=== PATIENT | female | born 1960 | race African-American/Black ===

== ENCOUNTER 2016-09-06 20:03 | Emergency (ER) | payer SELFPAY ==
[~2016-09-06] VITALS: Ht 175.3 cm; Wt 65.0 kg
[~2016-09-06 20:03] MED LIST: ZOFR4TAB3 SL
[2016-09-06 20:04] VITALS: BP 133/89; PULSE 128; RESP 16; TEMP 98.1; O2SAT 97
[2016-09-06] MEDS ORDERED: BUPIVACAINE HCL PF 0.5% 10 ML VIAL INFIL ONE (20:15)
[2016-09-06] MEDS ORDERED: LIDOCAINE HCL 1% 50 ML VIAL INFIL ONE (20:15)
[2016-09-06] MEDS ORDERED: ZANT150T2 PO (20:17)
--- NOTE | 2016-09-06 20:19 | PD ---
HPI Chief Complaint: Laceration/Skin Injury Time Seen by Provider: 20:15 Travel History International Travel<30 days: No Contact w/Intl Traveler<30days: No Traveled to known affect area: No History of Present Illness HPI 55-year-old female presents to the emergency department for evaluation of laceration to right hand third finger. Patient states about 4 hours ago she was using a grill when the grill lid fell down onto her distal right third finger. States that she is laceration to her finger that has not stopped slowly bleeding despite multiple dressings. She complains of minimal pain at the site of the laceration. Denies any decreased range of motion, decreased sensation, numbness or tingling. States that her tetanus vaccination is up-to- date. PFSH Past Medical History Medical History: Denies Significant Hx Past Surgical History Hysterectomy: Yes Social History Tobacco Use: Yes (1PPD) Substance Use: No Allergies-Medications (Allergen,Severity, Reaction): Coded Allergies: Ibuprofen (Verified Allergy, Severe, Nausea/Vomiting, 09/06/16) Reported Meds & Prescriptions Reported Meds & Active Scripts Active Reported Zantac (Ranitidine HCl) 150 Mg Tab 150 Mg PO BID Review of Systems Except as stated in HPI: all other systems reviewed are Neg Physical Exam Narrative GENERAL: Well-nourished and well-developed pleasant female patient in no acute distress. SKIN: Warm and dry. HEAD: Normocephalic and atraumatic. EYES: No injection, drainage, or hyphema noted. PERRLA. EOMI. ENT: No nasal drainage noted. Oropharynx is clear. NECK: Supple and the trachea is midline. CARDIOVASCULAR: Regular rate and rhythm. RESPIRATORY: Breath sounds are equal bilaterally with no accessory muscle use, wheezing, rhonchi, or crackles. EXTREMITY: Right hand third finger distal volar aspect with 1.5 cm laceration. Full range of motion in all joints. No joint swelling/injury. Normal opposition of thumb. Distal extremity neurovascularly intact with intact two point discrimination. NEUROLOGICAL: Awake, alert, and oriented. Normal speech and gait. Cranial nerves are grossly intact. Data Data Last Documented VS Vital Signs Date Time Temp Pulse Resp B/P Pulse Ox O2 Delivery O2 Flow Rate FiO2 09/06/16 20:04 98.1 128 16 133/89 97 Room Air Orders Bupivacaine Pf 0.5% Inj (Marcaine Pf 0.5 (09/06/16 20:15) Lidocaine 1% Inj (50 Ml) (Xylocaine 1% I (09/06/16 20:15) Finger ([id number]) (09/06/16 20:14) MDM Medical Decision Making Medical Screen Exam Complete: Yes Emergency Medical Condition: Yes Differential Diagnosis Laceration versus deep versus superficial versus avulsion Narrative Course 55-year-old female presents to the emergency department for evaluation of right hand third finger laceration. Patient is afebrile, she is tachycardic, otherwise vital signs within normal limits. Patient's finger is neurovascularly intact. Digital block and laceration repair is performed. Patient is refusing to have an x-ray performed at this time. I did discuss with her that she could have a distal tuft fracture however patient is refusing x-ray. She'll be placed on prophylactic antibiotics. Discussed with her that should she develop any worsening of symptoms such as redness, swelling, pain, discharge or drainage to return immediately to the emergency department. Patient verbalizes understanding and agreement with treatment plan. Procedures Procedure Narrative LACERATION LOCATION: Right hand third finger volar distal tip LENGTH: 1.5 cm NUMBER OF STITCHES/BRIGID: 4 sutures REPAIR: The area of the laceration was prepped with Betadine and sterilely draped. A digital block was performed using 1% lidocaine and 0.5% bupivacaine. The wound was copiously irrigated and explored without evidence of foreign body, tendon injury or neurovascular injury. The wound was closed using 4. 0 Ethilon. This was a single layer repair. Antibiotic ointment and a sterile dressing was applied. The patient was advised to keep the dressing clean and dry. Patient tolerated the procedure well. Diagnosis Primary Impression: Finger laceration Qualified Code: S61.212A - Laceration of right middle finger without foreign body without damage to nail, initial encounter Referrals: Primary Care Physician Patient Instructions: Finger Laceration (ED), General Instructions Additional Instructions: Keep wound clean and dry. Wash gently with soap and water. Apply topical antibiotic ointment twice daily. Have sutures removed in 7 days. Take medication as prescribed with food and a full glass of water. Follow-up with your Primary Care Physician. Return to the ED for any acute worsening of symptoms. Med/Other Pt SpecificInfo: Prescription(s) given Disposition: 01 DISCHARGE HOME Condition: Stable Ilene Polo Sep 06, 2016 20:19
[2016-09-06] MEDS ORDERED: CEPH-460 PO (21:07)
--- NOTE | 2016-09-06 21:07 | PD ---
Data Data Last Documented VS Vital Signs Date Time Temp Pulse Resp B/P Pulse Ox O2 Delivery O2 Flow Rate FiO2 09/06/16 20:04 98.1 128 16 133/89 97 Room Air Orders Bupivacaine Pf 0.5% Inj (Marcaine Pf 0.5 (09/06/16 20:15) Lidocaine 1% Inj (50 Ml) (Xylocaine 1% I (09/06/16 20:15) MDM Supervised Visit with MIKHAIL: No Diagnosis Primary Impression: Finger laceration Qualified Code: S61.212A - Laceration of right middle finger without foreign body without damage to nail, initial encounter Referrals: Primary Care Physician Patient Instructions: General Instructions, Finger Laceration (ED) Departure Forms: Tests/Procedures Additional Instruction: Keep wound clean and dry. Wash gently with soap and water. Apply topical antibiotic ointment twice daily. Have sutures removed in 7 days. Take medication as prescribed with food and a full glass of water. Follow-up with your Primary Care Physician. Return to the ED for any acute worsening of symptoms. Med/Other Pt SpecificInfo: Prescription(s) given Scripts Cephalexin (Keflex)500 Mg [id number] Mg PO Q12H 5 Days Ref 0 Prov:Zina Branham MD 09/06/16 Disposition: 01 DISCHARGE HOME Condition: Stable Zina Branham MD Sep 06, 2016 21:07
== END 2016-09-06 21:35 | disposition home or self-care (01) ==
LOC: NEPD 20:03
DX: S61.212A Laceration without foreign body of right middle finger without damage to nail, initial encounter (principal); Z72.0 Tobacco use; S67.21XA Crushing injury of right hand, initial encounter; Y93.G2 Activity, grilling and smoking food; Y92.9 Unspecified place or not applicable; Y99.9 Unspecified external cause status
CPT/HCPCS: 12001

== ENCOUNTER 2016-09-14 11:58 | Emergency (ER) | payer SELFPAY ==
[~2016-09-14 11:58] MED LIST changes: +CEPH-460 PO; +ZANT150T2 PO; -ZOFR4TAB3 SL
[2016-09-14 12:01] VITALS: BP 140/77; PULSE 104; RESP 20; TEMP 98.7; O2SAT 97
--- NOTE | 2016-09-14 13:05 | PD ---
HPI Chief Complaint: Injury Time Seen by Provider: 13:02 Travel History International Travel<30 days: No Contact w/Intl Traveler<30days: No Traveled to known affect area: No History of Present Illness HPI 56-year-old Afro-[place] female presents the emergency department status post injury to the right distal third middle finger on September 05. Patient had sutures placed at that time. Patient had no x-rays performed at that time at her request. She now presents with ongoing swelling and ecchymosis to the base of the nail of the third digit on the right hand. Sutures are in place in the the wound appears to be healed fairly well. There is no wound dehiscence. Patient complains of numbness along the distal finger, but denies drainage or fever or significant pain. Patient is allergic to ibuprofen. PFSH Past Surgical History Hysterectomy: Yes Social History Alcohol Use: Yes (6PPW) Tobacco Use: Yes (1PPD) Substance Use: No Allergies-Medications (Allergen,Severity, Reaction): Coded Allergies: Ibuprofen (Verified Allergy, Severe, Nausea/Vomiting, 09/14/16) Reported Meds & Prescriptions Reported Meds & Active Scripts Active No Active Prescriptions or Reported Medications Review of Systems Except as stated in HPI: all other systems reviewed are Neg General / Constitutional: No: Fever Eyes: No: Visual changes HENT: No: Headaches Cardiovascular: No: Chest Pain or Discomfort Respiratory: No: Shortness of Breath Gastrointestinal: No: Abdominal Pain Genitourinary: No: Dysuria Musculoskeletal: No: Pain Skin: No Rash Neurologic: No: Weakness Psychiatric: No: Depression Endocrine: No: Polydipsia Hematologic/Lymphatic: No: Easy Bruising Physical Exam Narrative GENERAL: Patient appears in no acute distress. SKIN: Warm and dry. Patient has normal colored normal turgor. The right distal third finger shows well healed laceration with sutures still in place. There is ecchymosis to the base of the fingernail, but no signs of infection or drainage currently. HEAD: Atraumatic. Normocephalic. EYES: Pupils equal and round. No scleral icterus. No injection or drainage. ENT: No nasal bleeding or discharge. Mucous membranes pink and moist. Pharynx is clear. Airway is patent. NECK: Trachea midline. Supple nontender CARDIOVASCULAR: Regular rate and rhythm. RESPIRATORY: No accessory muscle use. Clear to auscultation. Breath sounds equal bilaterally. GASTROINTESTINAL: Abdomen soft, non-tender, nondistended. Hepatic and splenic margins not palpable. MUSCULOSKELETAL: Extremities without clubbing, cyanosis, or edema. No obvious deformities. NEUROLOGICAL: Awake and alert. No obvious cranial nerve deficits. Motor grossly within normal limits. Five out of 5 muscle strength in the arms and legs. Normal speech. PSYCHIATRIC: Appropriate mood and affect; insight and judgment normal. Data Data Last Documented VS Vital Signs Date Time Temp Pulse Resp B/P Pulse Ox O2 Delivery O2 Flow Rate FiO2 09/14/16 12:01 98.7 104 20 140/77 97 Room Air Orders Finger ([id number]) (09/14/16 12:47) MDM Medical Decision Making Medical Screen Exam Complete: Yes Emergency Medical Condition: Yes Medical Record Reviewed: Yes Differential Diagnosis Crush injury to the distal right third finger. Laceration. Possible fracture. Suture removal. Narrative Course Patient is medically stable at time of exam. X-ray of the right third finger is ordered. X-ray shows a distal tuft fracture which is comminuted appears to be healing well with good alignment. Sutures are removed from the previous laceration which appears to be healing well without signs of dehiscence or infection. Band-Aid is placed as well as a aluminum cage finger splint for protection. Patient should continue to keep the area clean and splinted for the next 6-8 weeks. Patient can follow-up with Dr. Baeza, the hand surgeon as needed. Patient can return the emergency Department with worsening symptoms as necessary. Diagnosis Primary Impression: Fracture, finger, distal phalanx Qualified Code: S62.662D - Open nondisplaced fracture of distal phalanx of right middle finger with routine healing, subsequent encounter Additional Impression: Encounter for removal of sutures Referrals: Laurel Baeza MD as needed Patient Instructions: Finger Fracture (ED), Finger Laceration (ED), General Instructions Additional Instructions: X-ray shows a distal tuft fracture which is comminuted appears to be healing well with good alignment. Sutures are removed from the previous laceration which appears to be healing well without signs of dehiscence or infection. Band-Aid is placed as well as a aluminum cage finger splint for protection. Patient should continue to keep the area clean and splinted for the next 6-8 weeks. Patient can follow-up with Dr. Baeza, the hand surgeon as needed. Patient can return the emergency Department with worsening symptoms as necessary. Med/Other Pt SpecificInfo: Prescription(s) given, Wound Care Scripts No Active Prescriptions or Reported Meds Disposition: 01 DISCHARGE HOME Condition: Stable Devante Gross Sep 14, 2016 13:05
--- NOTE | 2016-09-14 13:37 | RADRPT ---
EXAM DATE/TIME: 09/14/2016 13:09 [facility] COMPARISON: No previous studies available for comparison. INDICATIONS : Dropped a grill on her 3rd digit right hand. MEDICAL HISTORY : None. SURGICAL HISTORY : None. ENCOUNTER: Initial ACUITY: 1 week PAIN SCORE: 10/10 LOCATION: Right 3rd digit FINDINGS: There is a fracture of the third distal phalanx without any significant angulation or displacement. CONCLUSION: Third distal phalangeal fracture. Susy Crow MD on September 14, 2016 at 13:35 Board Certified Radiologist. This report was verified electronically.
== END 2016-09-14 13:58 | disposition home or self-care (01) ==
LOC: NEPK 11:58
DX: S62.632D Displaced fracture of distal phalanx of right middle finger, subsequent encounter for fracture with routine healing (principal); F17.200 Nicotine dependence, unspecified, uncomplicated; Z48.02 Encounter for removal of sutures; X58.XXXD Exposure to other specified factors, subsequent encounter
CPT/HCPCS: 73140; 99283

== ENCOUNTER 2016-09-22 16:55 | Emergency (ER) | payer SELFPAY ==
[~2016-09-22] VITALS: Ht 175.3 cm; Wt 60.0 kg
[2016-09-22 16:57] VITALS: BP 155/88; PULSE 95; RESP 20; TEMP 98.5; O2SAT 97
--- NOTE | 2016-09-22 17:11 | PD ---
Physical Exam Time Seen by Provider: 17:09 Narrative 56 y/o female here for wound check- seen recently with a laceration to R 3rd finger, sutured, and now the wound is dehiscing. Vital signs reviewed. Seen at triage desk. Awaiting bed placement. Data Data Last Documented VS Vital Signs Date Time Temp Pulse Resp B/P Pulse Ox O2 Delivery O2 Flow Rate FiO2 09/22/16 16:57 98.5 95 20 155/[address] [facility] Medical Record Reviewed: Yes Supervised Visit with MIKHAIL: No Scripts No Active Prescriptions or Reported Meds Narendra Machado Sep 22, 2016 17:11
--- NOTE | 2016-09-22 17:24 | PD ---
HPI . right index finger injury Chief Complaint: Injury Time Seen by Provider: 17:23 Travel History International Travel<30 days: No Contact w/Intl Traveler<30days: No Traveled to known affect area: No History of Present Illness HPI 56-year-old female who initially injured her finger on the September here with complaints of worsening wound. Patient is here requesting that the laceration be repaired again. During her last visit sutures were removed and records reveal that there was no evidence of wound dehiscence. Today the wound is completely dehisced. It is already healing by secondary intention. No evidence of infection. PFSH Past Surgical History Hysterectomy: Yes Social History Alcohol Use: Yes (6PPW) Tobacco Use: Yes (1PPD) Substance Use: No Allergies-Medications (Allergen,Severity, Reaction): Coded Allergies: Ibuprofen (Verified Allergy, Severe, Nausea/Vomiting, 09/22/16) Reported Meds & Prescriptions Reported Meds & Active Scripts Active No Active Prescriptions or Reported Medications Review of Systems General / Constitutional: No: Fever Eyes: No: Visual changes HENT: No: Headaches Cardiovascular: No: Chest Pain or Discomfort Respiratory: No: Shortness of Breath Gastrointestinal: No: Abdominal Pain Genitourinary: No: Dysuria Musculoskeletal: No: Pain Skin: Positive Other (right index finger wound dehiscence), No Rash Neurologic: No: Weakness Psychiatric: No: Depression Endocrine: No: Polydipsia Hematologic/Lymphatic: No: Easy Bruising Physical Exam Narrative GENERAL: AAO x 3, no acute distress, Well-nourished, well-developed patient. SKIN: Warm and dry. No visible rashes or bruising. right index finger + wound dehiscence already healing by 2nd intention without any evidence of infection HEAD: Normocephalic and atraumatic. EYES: No scleral icterus. No injection or drainage. ENT: No nasal drainage noted. Mucous membranes pink. Airway patent. NECK: Supple, trachea midline. No JVD. CARDIOVASCULAR: Regular rate and rhythm without murmurs, gallops, or rubs. RESPIRATORY: Breath sounds equal bilaterally. No accessory muscle use. No rhonchi or rales. GASTROINTESTINAL:visual inspection normal EXTREMITIES: No cyanosis or edema. BACK: No obvious deformity. NEURO: CN II-12 intact, communications controller strength normal b/l, UE and LE 5/5, no focal deficits PSYCH: AAO x 3, normal affect. Data Data Last Documented VS Vital Signs Date Time Temp Pulse Resp B/P Pulse Ox O2 Delivery O2 Flow Rate FiO2 09/22/16 16:57 98.5 95 20 155/88 97 Room Air MDM Medical Decision Making Medical Screen Exam Complete: Yes Emergency Medical Condition: Yes Medical Record Reviewed: Yes Differential Diagnosis Wound dehiscence, slow healing wound, less likely cellulitis Narrative Course 56 are old female here with a right index finger laceration that is healing. There is some wound dehiscence, however there is secondary healing. I recommend for her to keep an eye on the area lookout for any signs of infection. Follow-up with the hand surgeon if she desires. Diagnosis Primary Impression: Wound dehiscence Patient Instructions: General Instructions Additional Instructions: Follow-up with the hand surgeon, as recommended at your last visit. Keep area clean and dry. Watch for signs of infection: fever, redness, swelling, warmth, pus or drainage , red streaks around the cut, and increased pain from the area. If any of these develop, go to the nearest emergency department. Med/Other Pt SpecificInfo: No Change to Meds Scripts No Active Prescriptions or Reported Meds Disposition: 01 DISCHARGE HOME Condition: Stable Lexi Rivera Sep 22, 2016 17:24
== END 2016-09-22 17:58 | disposition home or self-care (01) ==
LOC: NEPK 16:55
DX: T81.33XA Disruption of traumatic injury wound repair, initial encounter (principal)
CPT/HCPCS: 99282